=== PATIENT | male | born 1930 | race Caucasian/White ===

== ENCOUNTER 2019-12-11 20:12 | Emergency (ER) | payer MEDICARE, OTHER ==
[~2019-12-11] VITALS: Ht 177.8 cm; Wt 115.0 kg
[~2019-12-11 20:12] MED LIST: ACET1TAB12 PO; ACET325T55 PO; ASPI-1265 PO; BIMA5DRO RIGHTEYE; BRIM5DRO16 RIGHTEYE; CARV6.253 PO; DILT360C32 PO; FURO40TA4 PO; LEUP3.753 IM; METH1TAB PO; PIRO20CA2 PO; POTA20TA10 PO; SIMV-42 PO; TAMS0.4C32 PO; TIMO5DRO4 RIGHTEYE
[2019-12-11 20:15] VITALS: BP 146/61
[2019-12-11] MEDS ORDERED: dexamethasone sod phosphate 10mg/ml inj PO STA (21:47)
[2019-12-11] MEDS ORDERED: LIDO20SO16 PO (21:51)
== END 2019-12-11 22:46 | disposition home or self-care (01) ==
LOC: ER 20:13
DX: J02.9 Acute pharyngitis, unspecified (principal); R05 Cough; R06.02 Shortness of breath; I25.10 Atherosclerotic heart disease of native coronary artery without angina pectoris; I10 Essential (primary) hypertension; G89.29 Other chronic pain; Z20.828 Contact with and (suspected) exposure to other viral communicable diseases; Z95.1 Presence of aortocoronary bypass graft; Z79.82 Long term (current) use of aspirin; Z79.899 Other long term (current) drug therapy
CPT/HCPCS: 36415; 87081; 87635; 87880; 99284; J1100

== ENCOUNTER 2020-08-24 00:13 | Emergency (ER) | payer MEDICARE ==
[~2020-08-24] VITALS: Ht 177.8 cm; Wt 95.5 kg
[~2020-08-24 00:13] MED LIST changes: +LIDO20SO16 PO
[2020-08-24] MEDS ORDERED: normal saline 1000ML IV soln IVB ONE (00:25)
[2020-08-24] MEDS ORDERED: loperamide 2mg capsule PO ONE ×2 (00:25→02:35)
[2020-08-24 01:19] LABS: ALANINE AMINOTRANSFERASE 41 U/L (12-78); ALBUMIN 3.4 G/DL (3.4-5.0); ALKALINE PHOSPHATASE 95 IU/L (46-116); ANION GAP 10 (8-16); ASPARTATE AMINO TRANSFERASE 50 U/L (10-37); BILIRUBIN,TOTAL 0.7 MG/DL (0.1-1.0); BLOOD UREA NITROGEN 36 MG/DL (7-18); BUN/CREATININE RATIO 19.1 (5.4-32.0); CALCIUM 8.6 MG/DL (8.5-10.1); CHLORIDE 102 MMOL/L (99-107); CREATININE 1.88 MG/DL (0.60-1.10); GLUCOSE 125 MG/DL (70-104); MAGNESIUM 1.8 MG/DL (1.5-2.4); POTASSIUM 4.1 MMOL/L (3.5-5.1); SODIUM 136 MMOL/L (135-145); TOTAL CARBON DIOXIDE 24.5 MMOL/L (24-32); TOTAL PROTEIN 6.7 G/DL (6.4-8.2); eGFR 34 ML/MIN
[2020-08-24 01:38] LABS: BASOPHILS % (AUTO) 0.4 % (0-1); EOSINOPHILS % (AUTO) 0.2 % (0-6); HEMATOCRIT 38.1 % (42.0-52.0); HEMOGLOBIN 12.9 g/dl (14.0-17.9); LYMPHOCYTES # (AUTO) 0.3 X10'3 (1.1-4.8); LYMPHOCYTES % (AUTO) 3.6 % (21-51); MEAN CORPUSCULAR HEMOGLOBIN 33.5 PG (27.0-31.0); MEAN CORPUSCULAR VOLUME 98.5 FL (78-98); MEAN PLATELET VOLUME 10.4 FL (7.4-10.4); MONOCYTES # (AUTO) 0.8 X10'3 (0-0.9); MONOCYTES % (AUTO) 8.1 % (2-12); NEUTROPHILS # (AUTO) 8.2 X10'3 (1.8-7.7); NEUTROPHILS % (AUTO) 87.7 % (42-75); PLATELET COUNT 119 X10'3 (140-440); RED BLOOD COUNT 3.87 X10'6 (4.70-6.10); RED CELL DISTRIBUTION WIDTH 14.6 % (11.5-14.5); WHITE BLOOD COUNT 9.4 X10'3 (4.5-11.0)
[2020-08-24] MEDS ORDERED: LOPE2CAP PO (01:43)
[2020-08-24 02:45] VITALS: BP 165/87
--- NOTE | 2020-08-24 10:06 | NUR ---
PT'S CALLED, STATED THAT THEY LEFT THE ER IN SUCH A HURRY THAT THEY FORGOT THE PT'S DC PAPERS AND RX. SPOKE WITH DR LEIVA AND RX WILL BE CALLED INTO [facility] IN [place]. LOPERAMIDE 2MG CAPSULES; 2MG PO AFTER EACH LOOSE STOOL, MAX OF 8 PER DAY #20 WAS CALLED INTO [facility] IN [place] AT PTS REQUEST
== END 2020-08-24 03:23 | disposition home or self-care (01) ==
LOC: ER 00:14
DX: R19.7 Diarrhea, unspecified (principal); R53.1 Weakness; I25.10 Atherosclerotic heart disease of native coronary artery without angina pectoris; I10 Essential (primary) hypertension; G89.29 Other chronic pain; Z95.1 Presence of aortocoronary bypass graft; Z98.2 Presence of cerebrospinal fluid drainage device; Z79.899 Other long term (current) drug therapy
CPT/HCPCS: 36415; 74176; 80053; 83735; 85025; 96360; 99284; J7030

== ENCOUNTER → 2020-11-21 | Outpatient (CLI) | payer MEDICARE ==
[2020-11-21] VITALS (13 sets, daily range): BP systolic 75–173; BP diastolic 42–95
[~2020-11-21] MED LIST changes: +LOPE2CAP PO
== END | disposition home or self-care (01) ==
LOC: CARD DIAG 09:38
PROVIDERS: ATTEND Internal Medicine Cardiovascular Disease
DX: R55 Syncope and collapse (principal)
CPT/HCPCS: 93660

== ENCOUNTER 2020-12-25 09:07 | Day surgery (SDC) | payer MEDICARE ==
[2020-12-24 11:39] LABS: BASOPHILS # (AUTO) 0.1 X10'3 (0-0.2); BASOPHILS % (AUTO) 1.3 % (0-1); EOSINOPHILS # (AUTO) 0.1 X10'3 (0-0.9); EOSINOPHILS % (AUTO) 2.5 % (0-6); HEMATOCRIT 39.8 % (42.0-52.0); HEMOGLOBIN 13.4 g/dl (14.0-17.9); LYMPHOCYTES # (AUTO) 0.7 X10'3 (1.1-4.8); LYMPHOCYTES % (AUTO) 14.3 % (21-51); MEAN CORPUSCULAR HEMOGLOBIN 32.4 PG (27.0-31.0); MEAN CORPUSCULAR HGB CONC 33.6 g/dL (33.0-36.5); MEAN CORPUSCULAR VOLUME 96.4 FL (78-98); MEAN PLATELET VOLUME 9.4 FL (7.4-10.4); MONOCYTES # (AUTO) 0.6 X10'3 (0-0.9); NEUTROPHILS # (AUTO) 3.3 X10'3 (1.8-7.7); NEUTROPHILS % (AUTO) 69.9 % (42-75); PLATELET COUNT 163 X10'3 (140-440); RED BLOOD COUNT 4.12 X10'6 (4.70-6.10); RED CELL DISTRIBUTION WIDTH 14.6 % (11.5-14.5); WHITE BLOOD COUNT 4.7 X10'3 (4.5-11.0)
[2020-12-24 11:50] LABS: PARTIAL THROMBOPLASTIN TIME 26 SECONDS (22-32)
[2020-12-24 11:52] LABS: ALBUMIN 3.4 G/DL (3.4-5.0); ANION GAP 10 (8-16); BLOOD UREA NITROGEN 33 MG/DL (7-18); BUN/CREATININE RATIO 16.8 (5.4-32.0); CALCIUM 8.3 MG/DL (8.5-10.1); CHLORIDE 108 MMOL/L (99-107); CREATININE 1.97 MG/DL (0.60-1.10); GLUCOSE 118 MG/DL (70-104); POTASSIUM 4.9 MMOL/L (3.5-5.1); SODIUM 142 MMOL/L (135-145); TOTAL CARBON DIOXIDE 23.9 MMOL/L (24-32); eGFR 32 ML/MIN
[~2020-12-25] VITALS: Ht 177.8 cm; Wt 82.2 kg
[2020-12-25] VITALS (12 sets, daily range): BP systolic 121–173; BP diastolic 54–99
[~2020-12-25 09:07] MED LIST changes: +POTA-197 PO; -POTA20TA10 PO
[2020-12-25] MEDS ORDERED: ceFAZolin 1GM/D5W- ADD-VANTAGE 50 ML IV ONE (09:35)
[2020-12-25] MEDS ORDERED: AMLO2.5T4 PO (09:38)
[2020-12-25] MEDS ORDERED: APIX2.5T PO (09:38)
[2020-12-25] MEDS ORDERED: METH1TAB29 PO (09:38)
[2020-12-25] MEDS ORDERED: HYDR-3965 PO (09:38)
[2020-12-25] MEDS ORDERED: LEUP3.753 IM (09:38)
[2020-12-25] MEDS ORDERED: LIDOCAINE 2% w/EPI 1:100:000 30mL injection MDV**cath lab 1 only ONE (10:03)
[2020-12-25] MEDS ORDERED: ceFAZolin 1000mg inj ONE (10:03)
[2020-12-25] MEDS ORDERED: midazolam 1 mg/ML 2ml injection ONE ×2 (10:22→11:23)
[2020-12-25] MEDS ORDERED: fentaNYL/PF 50MCG/1 ML 2ML syringe ONE ×2 (10:22→11:42)
[2020-12-25] MEDS ORDERED: acetaminophen 325mg tablet PO PRN (12:50)
[2020-12-25] MEDS ORDERED: HYDROcodone/acetaminophen 5mg/325mg tablet PO PRN (12:50)
[2020-12-25] MEDS ORDERED: HYDROcodone/acetaminophen 10/325mg tab PO PRN (12:50)
[2020-12-25] MEDS ORDERED: vancomycin/NS 1 GM ADD-VANTAGE 250 ML X 1 DOSE IV ONE (14:00)
== END 2020-12-25 19:10 | disposition home or self-care (01) ==
LOC: SSTAY O 09:07
PROVIDERS: ATTEND Internal Medicine Cardiovascular Disease
DX: I49.5 Sick sinus syndrome (principal); I25.10 Atherosclerotic heart disease of native coronary artery without angina pectoris; E78.5 Hyperlipidemia, unspecified; I10 Essential (primary) hypertension; G47.30 Sleep apnea, unspecified; H40.9 Unspecified glaucoma; I65.22 Occlusion and stenosis of left carotid artery; I48.0 Paroxysmal atrial fibrillation; Z79.899 Other long term (current) drug therapy; Z95.1 Presence of aortocoronary bypass graft; Z79.01 Long term (current) use of anticoagulants; Z85.46 Personal history of malignant neoplasm of prostate; Z86.73 Personal history of transient ischemic attack (TIA), and cerebral infarction without residual deficits; Z90.49 Acquired absence of other specified parts of digestive tract; Z96.651 Presence of right artificial knee joint; Z98.890 Other specified postprocedural states; Z79.82 Long term (current) use of aspirin
CPT/HCPCS: 33208; 36415; 71046; 80048; 85025; 85610; 85730; 93005; 99152; 99153; C1785; C1894; C1898; J0690; J2250; J3010; J3370; A4620; A6449